=== PATIENT | male | born 1945 | race Caucasian/White ===

== ENCOUNTER 2016-11-10 08:43 | Emergency (ER) | payer BC, MEDICARE ==
[~2016-11-10] VITALS: Ht 172.7 cm; Wt 95.0 kg
[2016-11-10 08:47] VITALS: BP 118/82; PULSE 75; RESP 18; TEMP 97.4; O2SAT 97
[2016-11-10] MEDS ORDERED: SODIUM CHLOR 0.9% 1000 ML INJ 1,000 ML IV SCH (09:10)
[2016-11-10] MEDS ORDERED: TERA5CAP3 PO (09:11)
[2016-11-10] MEDS ORDERED: DICYCLOMINE HCL 20 MG/2 ML VIAL IM ONE (09:15)
[2016-11-10] MEDS ORDERED: ONDANSETRON HCL 4 MG/2 ML VIAL IVP ONE (09:15)
--- NOTE | 2016-11-10 09:15 | PD ---
HPI Chief Complaint: GI Complaint Time Seen by Provider: 09:04 Travel History International Travel<30 days: No Contact w/Intl Traveler<30days: No Traveled to known affect area: No History of Present Illness HPI 70-year-old male complains of nausea, abdominal cramping and diarrhea. Patient states that symptoms started last night. Patient denies any headache. Patient denies any chest pain or shortness of breath. Patient states that abdominal cramping is intermittent diffuse over the abdomen. Patient denies any pain radiation. Patient denies any dysuria or frequency. Patient states that he has intermittent mild aching pain to mid back area. Patient denies any blood or mucus in the stool. Patient has history of recurrent UTI. Patient took Cipro , 1 tablet prior coming to the emergency room. PFSH Past Medical History Diminished Hearing: No Medical other: Yes (prostate enlargement, benign) Tetanus Vaccination: > 5 Years Influenza Vaccination: No Past Surgical History Joint Replacement: Yes (bilateral hips) Social History Alcohol Use: No Tobacco Use: No Substance Use: No Allergies-Medications (Allergen,Severity, Reaction): Coded Allergies: No Known Allergies (Unverified , 11/10/16) Reported Meds & Prescriptions Reported Meds & Active Scripts Active Reported Terazosin (Terazosin HCl) 5 Mg Cap 5 Mg PO HS Review of Systems General / Constitutional: No: Fever Eyes: No: Visual changes HENT: No: Headaches Cardiovascular: No: Chest Pain or Discomfort Respiratory: No: Shortness of Breath Gastrointestinal: Positive: Nausea, Diarrhea, Abdominal Pain Genitourinary: No: Dysuria Musculoskeletal: No: Pain Skin: No Rash Neurologic: No: Weakness Psychiatric: No: Depression Endocrine: No: Polydipsia Hematologic/Lymphatic: No: Easy Bruising Physical Exam Narrative GENERAL: Well-nourished, well-developed patient. SKIN: Warm and dry. HEAD: Normocephalic. EYES: No scleral icterus. No injection or drainage. NECK: Supple, trachea midline. No JVD or lymphadenopathy. CARDIOVASCULAR: Regular rate and rhythm without murmurs, gallops, or rubs. RESPIRATORY: Breath sounds equal bilaterally. No accessory muscle use. GASTROINTESTINAL: Abdomen soft, non-tender, nondistended. MUSCULOSKELETAL: No cyanosis, or edema. BACK: Nontender without obvious deformity. No CVA tenderness. Neurologic exam normal. Data Data Last Documented VS Vital Signs Date Time Temp Pulse Resp B/P Pulse Ox O2 Delivery O2 Flow Rate FiO2 11/10/16 10:01 73 16 140/79 94 Room Air 11/10/16 08:47 97.4 Orders Complete Blood Count With Diff (11/10/16 09:10) Comprehensive Metabolic Panel (11/10/16 09:10) Lipase (11/10/16 09:10) Urinalysis - C+S If Indicated (11/10/16 09:10) Iv Access Insert/Monitor (11/10/16 09:10) Ecg Monitoring (11/10/16 09:10) Oximetry (11/10/16 09:10) Ondansetron Inj (Zofran Inj) (11/10/16 09:15) Sodium Chlor 0.9% 1000 Ml Inj (Ns 1000 M (11/10/16 09:10) Dicyclomine Inj (Bentyl Inj) (11/10/16 09:15) Urine Culture (11/10/16 09:45) Ceftriaxone Inj (Rocephin Inj) (11/10/16 11:00) Labs Laboratory Tests Test 11/10/16 11/10/16 09:20 09:45 White Blood Count 12.4 TH/MM3 Red Blood Count 5.47 MIL/MM3 Hemoglobin 16.3 GM/DL Hematocrit 47.4 % Mean Corpuscular Volume 86.6 FL Mean Corpuscular Hemoglobin 29.9 PG Mean Corpuscular Hemoglobin 34.5 % Concent Red Cell Distribution Width 12.4 % Platelet Count 187 TH/MM3 Mean Platelet Volume 7.7 FL Neutrophils (%) (Auto) 87.8 % Lymphocytes (%) (Auto) 7.4 % Monocytes (%) (Auto) 4.0 % Eosinophils (%) (Auto) 0.6 % Basophils (%) (Auto) 0.2 % Neutrophils # (Auto) 10.9 TH/MM3 Lymphocytes # (Auto) 0.9 TH/MM3 Monocytes # (Auto) 0.5 TH/MM3 Eosinophils # (Auto) 0.1 TH/MM3 Basophils # (Auto) 0.0 TH/MM3 CBC Comment DIFF FINAL Differential Comment Sodium Level 141 MEQ/L Potassium Level 4.8 MEQ/L Chloride Level 107 MEQ/L Carbon Dioxide Level 23.8 MEQ/L Anion Gap 10 MEQ/L Blood Urea Nitrogen 18 MG/DL Creatinine 1.30 MG/DL Estimat Glomerular Filtration 54 ML/MIN Rate Random Glucose 114 MG/DL Calcium Level 9.2 MG/DL Total Bilirubin 0.9 MG/DL Aspartate Amino Transf 20 U/L (AST/SGOT) Alanine Aminotransferase 23 U/L (ALT/SGPT) Alkaline Phosphatase 74 U/L Total Protein 7.3 GM/DL Albumin 3.8 GM/DL Lipase 125 U/L Urine Collection Type VOIDED Urine Color YELLOW Urine Turbidity CLEAR Urine pH 8.0 Urine Specific [place] 1.015 Urine Protein NEG mg/dL Urine Glucose (UA) NEG mg/dL Urine Ketones NEG mg/dL Urine Occult Blood NEG Urine Nitrite NEG Urine Bilirubin NEG Urine Leukocyte Esterase TRACE Urine WBC 3-5 /hpf Urine WBC Clumps RARE Urine Squamous Epithelial 0-5 /hpf Cells Urine Bacteria RARE /hpf Microscopic Urinalysis Comment CULTURE INDICATED MDM Medical Decision Making Medical Screen Exam Complete: Yes Emergency Medical Condition: Yes Interpretation(s) 10:09 AM. CBC WBC 12.4. 87 neutrophil. 10:46 AM. CMP within normal limit. UA positive WBC and bacteria. Differential Diagnosis Differential diagnosis including gastroenteritis, gastritis, PUD, pancreatitis, cholecystitis, colitis, UTI, pyelonephritis. Narrative Course 70-year-old male with abdominal cramping, nausea and diarrhea. Normal saline solution 1 L IV bolus. Zofran 4 mg IV. Bentyl 20 mg IM. Diagnosis Primary Impression: Gastroenteritis Additional Impression: UTI (urinary tract infection) Qualified Code: N30.00 - Acute cystitis without hematuria Patient Instructions: General Instructions Additional Instructions: Take medications as directed. Follow-up with personal physician. Return if persistent problem or worse. Med/Other Pt SpecificInfo: Prescription(s) given Scripts Diphenoxylate-Atropine (Lomotil)2.5-0.025 Mg Tab1 Tab PO Q6H PRN (DIARRHEA) #12 TAB Ref 0 Prov:Brent Rowland MD 11/10/16 Dicyclomine (Bentyl)20 Mg Tab20 Mg PO TID #15 TAB Ref 0 Prov:Brent Rowland MD 11/10/16 Ciprofloxacin (Cipro)500 Mg Huc205 Mg PO BID #14 TAB Prov:Brent Rowland MD 11/10/16 Disposition: 01 DISCHARGE HOME Condition: Stable Brent Rowland MD Nov 10, 2016 09:15
[2016-11-10 09:31] VITALS: RESP 18; O2SAT 97
[2016-11-10 09:40] LABS: AUTOMATED NEUTROPHIL # 10.9 TH/MM3 (1.8-7.7); BASOPHIL % 0.2 % (0.0-2.0); EOSINOPHIL # 0.1 TH/MM3 (0-0.4); EOSINOPHIL % 0.6 % (0.0-4.0); HEMATOCRIT 47.4 % (39.0-51.0); LYMPH % 7.4 % (9.0-44.0); LYMPHOCYTE # 0.9 TH/MM3 (1.0-4.8); MEAN CELL VOLUME 86.6 FL (80.0-100.0); MEAN CORPUSCULAR HEMOGLOBIN 29.9 PG (27.0-34.0); MEAN CORPUSCULAR HGB CONC 34.5 % (32.0-36.0); NEUT % 87.8 % (16.0-70.0); PLATELET COUNT 187 TH/MM3 (150-450); RED BLOOD COUNT 5.47 MIL/MM3 (4.50-5.90); RED CELL DISTRIBUTION WIDTH 12.4 % (11.6-17.2); WHITE BLOOD COUNT 12.4 TH/MM3 (4.0-11.0)
[2016-11-10 09:52] LABS: BICARBONATE 23.8 MEQ/L (21.0-32.0)
[2016-11-10 09:55] LABS: ALT (GPT) 23 U/L (12-78); GLOMERULAR FILTRATION RATE 54 ML/MIN (>89)
[2016-11-10 09:57] LABS: TOTAL BILIRUBIN ADULT 0.9 MG/DL (0.2-1.0)
[2016-11-10 09:58] LABS: ALKALINE PHOSPHATASE 74 U/L (45-117)
[2016-11-10 10:01] VITALS: BP 140/79; PULSE 73; RESP 16; O2SAT 94
[2016-11-10 10:01] LABS: ANION GAP 10 MEQ/L (5-15); CHLORIDE 107 MEQ/L (98-107); POTASSIUM 4.8 MEQ/L (3.5-5.1); SODIUM (NA) 141 MEQ/L (136-145)
[2016-11-10 10:04] LABS: HEMO FLAGS DIFF FINAL
[2016-11-10 10:08] LABS: BLOOD, URINE NEG (NEG); GLUCOSE,URINE NEG (NEG); KETONE, URINE NEG (NEG); NITRITE,URINE NEG (NEG)
[2016-11-10 10:12] LABS: BLOOD UREA NITROGEN 18 MG/DL (7-18)
[2016-11-10 10:13] LABS: AST (GOT) 20 U/L (15-37)
[2016-11-10 10:14] LABS: METHOD OF COLLECTION VOIDED; URINE COLOR YELLOW (YELLW/STRAW)
[2016-11-10 10:15] LABS: SQUAMOUS EPITHELIAL CELL URINE 0-5 /hpf (0-5)
[2016-11-10 10:16] LABS: BACTERIA, URINE RARE /hpf; COMMENT (UR) CULTURE INDICATED; CULTURE IF INDICATED CULTURE INDICATED
[2016-11-10 11:00] VITALS: BP 138/74; PULSE 74; RESP 16; O2SAT 98
[2016-11-10] MEDS ORDERED: cefTRIAXone INJ 1,000 MG in SODIUM CHLORIDE 0.9% INJ 100 ML IV ONE ×2 (11:00→12:00)
[2016-11-10] MEDS ORDERED: BENT20TA PO (11:05)
[2016-11-10] MEDS ORDERED: CIPR-9 PO (11:05)
[2016-11-10] MEDS ORDERED: LOMO2.5T PO (11:05)
[2016-11-10] MEDS ORDERED: cefTRIAXone 1,000 MG/NS 100 ML IV ONE ×2 (11:30)
[2016-11-10 12:05] VITALS: BP 128/76; PULSE 74; RESP 16; O2SAT 96
[2016-11-10 13:02] VITALS: BP 134/76
== END 2016-11-10 13:04 | disposition home or self-care (01) ==
LOC: PHED 08:43
DX: K52.9 Noninfective gastroenteritis and colitis, unspecified (principal); N30.00 Acute cystitis without hematuria; R10.84 Generalized abdominal pain; M54.6 Pain in thoracic spine; N40.0 Benign prostatic hyperplasia without lower urinary tract symptoms; Z87.440 Personal history of urinary (tract) infections
CPT/HCPCS: 80053; 81001; 83690; 85025; 87086; 96361; 96365; 96372; 96375; 99284; J0500; J0696; J2405; J7030